=== PATIENT | male | born 1960 | race Caucasian/White ===

== ENCOUNTER 2022-08-29 07:50 | Emergency (ER) | payer MEDICAID, OTHER ==
[~2022-08-29] VITALS: Ht 193 cm; Wt 136.0 kg
[2022-08-29 07:57] VITALS: BP 166/115
[2022-08-29] MEDS ORDERED: ibuprofen tablet 400 MG TABLET PO ONE (08:30)
[2022-08-29] MEDS ORDERED: acetaminophen 325mg tablet PO ONE (08:30)
[2022-08-29] MEDS ORDERED: TETanus/Pertussis (Acell)/Diphther VAC/PF (Tdap-Adult) 0.5ml syringe IMVAC ONE (08:30)
[2022-08-29] MEDS ORDERED: amox tr/potassium clavulanate 875/125mg TAB PO ONE (08:30)
--- NOTE | 2022-08-29 08:57 | NUR ---
Dr. Villalba notified about patient inquiry if he needs a rabies vaccine as patient was not sure if the dog bit him was even vaccinated.
[2022-08-29] MEDS ORDERED: rabies immune globulin/PF 150 unit/ml inj IMVAC STA (08:58)
[2022-08-29] MEDS ORDERED: rabies vaccine (PCEC)/PF 2.5 unit kit IMVAC ONE (09:00)
--- NOTE | 2022-08-29 09:23 | NUR ---
Right hand wound cleansed with saline, dried with gauze, betadine applied then steristrips over the wound. Right hand wrapped with rolled gauze then tape.
--- NOTE | 2022-08-29 10:38 | NUR ---
Hyperrab-immuneglobulin administered on right deltoid, bilateral thigh and bilateral uper buttocks as well as around the right hand near the wound.
[2022-08-29] MEDS ORDERED: HYDR-3965 PO (10:45)
[2022-08-29] MEDS ORDERED: AMOX-117 PO (10:45)
== END 2022-08-29 11:06 | disposition home or self-care (01) ==
LOC: ER 07:50
DX: S61.210A Laceration without foreign body of right index finger without damage to nail, initial encounter (principal); Z20.3 Contact with and (suspected) exposure to rabies; M19.90 Unspecified osteoarthritis, unspecified site; F41.9 Anxiety disorder, unspecified; F12.90 Cannabis use, unspecified, uncomplicated; Z98.890 Other specified postprocedural states; Z72.89 Other problems related to lifestyle; Z79.899 Other long term (current) drug therapy; W54.0XXA Bitten by dog, initial encounter; Y93.89 Activity, other specified; Y92.89 Other specified places as the place of occurrence of the external cause; Y99.8 Other external cause status
CPT/HCPCS: 90376; 90471; 90472; 90675; 90715; 96372; 99284; A6449

== ENCOUNTER 2022-09-01 14:24 | Emergency (ER) | payer MEDICAID ==
[~2022-09-01] VITALS: Ht 193 cm; Wt 136.4 kg
[~2022-09-01 14:24] MED LIST: AMOX-117 PO; HYDR-3965 PO
[2022-09-01 14:46] VITALS: BP 131/105
[2022-09-01] MEDS ORDERED: rabies vaccine (PCEC)/PF 2.5 unit kit IMVAC ONE (16:45)
== END 2022-09-01 17:24 | disposition home or self-care (01) ==
LOC: ER 14:24
DX: Z23 Encounter for immunization (principal); M19.90 Unspecified osteoarthritis, unspecified site; F12.90 Cannabis use, unspecified, uncomplicated
CPT/HCPCS: 90471; 90675; 99281; 99283

== ENCOUNTER 2022-09-05 06:53 | Emergency (ER) | payer MEDICAID ==
[~2022-09-05] VITALS: Ht 193 cm; Wt 136.4 kg
[2022-09-05 06:57] VITALS: BP 188/102
[2022-09-05] MEDS ORDERED: rabies vaccine (PCEC)/PF 2.5 unit kit IMVAC ONE (07:15)
== END 2022-09-05 07:33 | disposition home or self-care (01) ==
LOC: ER 06:54
DX: S61.431D Puncture wound without foreign body of right hand, subsequent encounter (principal); Z23 Encounter for immunization; M19.90 Unspecified osteoarthritis, unspecified site; F41.9 Anxiety disorder, unspecified; F12.90 Cannabis use, unspecified, uncomplicated; Z72.89 Other problems related to lifestyle; Z98.890 Other specified postprocedural states; Z79.899 Other long term (current) drug therapy; W54.0XXD Bitten by dog, subsequent encounter
CPT/HCPCS: 90471; 90675; 99281

== ENCOUNTER 2022-09-12 06:49 | Emergency (ER) | payer MEDICAID ==
[~2022-09-12] VITALS: Ht 193 cm; Wt 136.4 kg
[~2022-09-12 06:49] MED LIST changes: -AMOX-117 PO
[2022-09-12 06:58] VITALS: BP 146/100
== END 2022-09-12 07:51 | disposition left against medical advice (07) ==
LOC: ER 06:49
DX: Z23 Encounter for immunization (principal); Z53.21 Procedure and treatment not carried out due to patient leaving prior to being seen by health care provider
CPT/HCPCS: 99281

== ENCOUNTER 2022-09-13 07:12 | Emergency (ER) | payer MEDICAID ==
[~2022-09-13] VITALS: Ht 193 cm; Wt 136.4 kg
[2022-09-13 07:19] VITALS: BP 171/96
[2022-09-13] MEDS ORDERED: rabies vaccine (PCEC)/PF 2.5 unit kit IMVAC ONE (07:35)
== END 2022-09-13 08:04 | disposition home or self-care (01) ==
LOC: ER 07:13
DX: S61.250A Open bite of right index finger without damage to nail, initial encounter (principal); Z23 Encounter for immunization; M19.90 Unspecified osteoarthritis, unspecified site; F12.90 Cannabis use, unspecified, uncomplicated; W64.XXXA Exposure to other animate mechanical forces, initial encounter; Y93.89 Activity, other specified; Y92.89 Other specified places as the place of occurrence of the external cause; Y99.8 Other external cause status
CPT/HCPCS: 90471; 90675; 99281